=== PATIENT | female | born 1985 | race Caucasian/White ===

== ENCOUNTER → 2018-12-11 | Outpatient (CLI) | payer BC, SELFPAY ==
[2018-12-11 15:28] VITALS: BMI 23.9
[2018-12-14 14:31] LABS: HPV APTIMA, High Risk Negative (Negative)
== END | disposition home or self-care (01) ==
PROVIDERS: Family Provider Family Medicine; PCP Family Medicine; Referring Provider Nurse Practitioner Women's Health; Visit Provider Nurse Practitioner Women's Health
DX: Z12.4 Encounter for screening for malignant neoplasm of cervix (principal)
CPT/HCPCS: 87624; 88175; G0145

== ENCOUNTER → 2019-07-09 | Outpatient (CLI) | payer BC, SELFPAY ==
[2019-07-09 11:27] VITALS: BMI 23.9
[2019-07-09 12:11] LABS: Absolute Lymphocyte Count 2.28 X10^3/uL (0.83-4.51); Absolute Neutrophil Count 8.4 X10^3/uL (2.0-7.7); Basophil# 0.04 X10^3/uL; Basophil% 0.3 % (0-1); Eosinophil# 0.06 X10^3/uL; Eosinophils% 0.5 % (0-5); Hematocrit 39.7 % (37-47); Hemoglobin 13.4 g/dL (12.0-15.0); Lymphocyte # 2.28 X10^3/ul (4.0); Mean Corp Hgb Conc 33.8 g/dL (32-36); Mean Corpuscular Hgb 30.2 pg (27.0-32.0); Mean Corpuscular Volume 89.4 fL (81-99); Mean Platelet Vol. 9.9 fl (6.2-12.0); Monocyte# 1.14 X10^3/uL; Monocyte% 9.5 % (0-10); NRBC Flagged by Analyzer 0 % (0-5); Neutrophil # 8.43 X10^3/uL (2.7-7.7); Neutrophil % 70.4 % (47-70); Platelet Count 249 K/mm3 (150-450); RBC Distribution Width CV 13.1 % (11.6-14.6); RBC Distribution Width SD 42.6 fl (35.1-43.9); Red Blood Count 4.44 M/mm3 (4.2-5.4)
[2019-07-09 13:23] LABS: HIV - WCH Non-Reactive (Nonreactive); Hepatitis B Surface Antigen Non-Reactive (Nonreactive); Hepatitis C Antibody Non-Reactive (Nonreactive); Rubella IgG 120.3 IU/mL
[2019-07-09 13:23] LABS: Amphetamine Urine VISTA NEGATIVE (<1000 ng/mL); Barbiturate Urine VISTA NEGATIVE (< 200 ng/mL); Benzodiazepine Urine VISTA NEGATIVE (< 200 ng/mL); Cocaine Urine VISTA NEGATIVE (< 300 ng/mL); Ecstacy Urine VISTA NEGATIVE (< 500 ng/mL); Methadone Urine VISTA NEGATIVE (< 300 ng/mL); PCP Urine VISTA NEGATIVE (< 25 ng/mL); THC Urine VISTA NEGATIVE (< 50 ng/mL); Vista UDS pH Range 6
[2019-07-09 16:23] LABS: Chlamydia Trachomatis by PCR Negative (Negative); Neisserai gonorrhoeae by PCR Negative (Negative); Probe Check PASS; Sample Adequacy Control PASS; Specimen Processing Control PASS
[2019-07-12 04:37] LABS: Rapid Plasmin Reagin (RPR) NONREACTIVE (NONREACTIVE)
== END | disposition home or self-care (01) ==
LOC: PAVLAB 11:53
PROVIDERS: PCP Family Medicine; Referring Provider Obstetrics & Gynecology; Visit Provider Obstetrics & Gynecology
DX: Z34.80 Encounter for supervision of other normal pregnancy, unspecified trimester (principal)
CPT/HCPCS: 36415; 80307; 85025; 86592; 86703; 86762; 86803; 86850; 86900; 86901; 87086; 87340; 87491; 87591

== ENCOUNTER → 2019-11-21 14:29 | Outpatient (CLI) | payer BC, SELFPAY ==
[2019-11-04 10:50] VITALS: BMI 23.9
[2019-11-21 15:21] LABS: Absolute Lymphocyte Count 2.52 X10^3/uL (0.83-4.51); Basophil# 0.03 X10^3/uL; Basophil% 0.2 % (0-1); Eosinophil# 0.09 X10^3/uL; Eosinophils% 0.7 % (0-5); Hematocrit 34.9 % (37-47); Hemoglobin 11.8 g/dL (12.0-15.0); Lymphocyte # 2.52 X10^3/ul (4.0); Lymphocyte % 18.8 % (19-41); Mean Corp Hgb Conc 33.8 g/dL (32-36); Mean Corpuscular Hgb 31.6 pg (27.0-32.0); Mean Corpuscular Volume 93.3 fL (81-99); Mean Platelet Vol. 10.3 fl (6.2-12.0); Monocyte# 1.59 X10^3/uL; Monocyte% 11.9 % (0-10); NRBC Flagged by Analyzer 0 % (0-5); Neutrophil # 9.01 X10^3/uL (2.7-7.7); Neutrophil % 67.4 % (47-70); POSITIVE DIFFERENTIAL YES; Platelet Count 214 K/mm3 (150-450); RBC Distribution Width CV 13.5 % (11.6-14.6); RBC Distribution Width SD 46.1 fl (35.1-43.9); Red Blood Count 3.74 M/mm3 (4.2-5.4); White Blood Count 13.4 K/mm3 (4.4-11.0)
[2019-11-21 15:29] LABS: Differential Indicated SCAN CRITERIA MET
[2019-11-21 15:45] LABS: Glucose Challenge Gest 1H 50g 90 mg/dL (70-140)
[2019-11-21 15:58] LABS: Platelet Estimate ADEQUATE (ADEQ); Red Cell Morphology NORM C+C NORMAL (NORM C&C)
[2019-11-22 12:14] LABS: Pathologist Review Reviewed
== END ==
PROVIDERS: Nurse Practitioner Women's Health; PCP Family Medicine; Referring Provider Obstetrics & Gynecology; Visit Provider Obstetrics & Gynecology
DX: Z34.80 Encounter for supervision of other normal pregnancy, unspecified trimester (principal)
CPT/HCPCS: 36415; 82950; 85025

== ENCOUNTER 2019-12-06 02:50 | Outpatient (CLI) | payer BC, SELFPAY ==
[2019-12-02 13:14] VITALS: BMI 23.9
[2019-12-06 02:58] VITALS: BP 133/70; PULSE 105; PULSE 98; TEMP 36.6; O2SAT 97; O2SAT 98
[2019-12-06 03:03] VITALS: BP 133/70; PULSE 93
[2019-12-06 03:18] VITALS: BMI 29.8
--- NOTE | 2019-12-06 07:00 | OB.TRI.PN ---
Progress Notes Date of Service: 12/06/19 Progress Note: Patient presents for triage evaluation secondary to contractions threatened labor FHT: 140 Moderate variability reactive no decelerations category I tracing [place]: Irregular contractions Assessment and plan: Threatened labor no cervical change reactive NST, reassuring maternal and status patient discharged to home to follow-up as scheduled. See problem list details for additional plan information. - Problem List (1) Threatened labor Status: Acute Comment: Seen in triage 12/05 no cervical change follow-up labor precautions Multi Select Codes - Urinary/Genital Urinary/Genital CPT Codes: 28689-25 non-stress test Interp
== END 2019-12-06 05:15 | disposition home or self-care (01) ==
LOC: WPOUT 02:54 → WP 02:57
PROVIDERS: PCP Family Medicine; Referring Provider Obstetrics & Gynecology; Visit Provider Obstetrics & Gynecology
DX: O60.00 Preterm labor without delivery, unspecified trimester (principal); Z3A.00 Weeks of gestation of pregnancy not specified
CPT/HCPCS: 59025; 59050; 99218; G0378

== ENCOUNTER 2019-12-30 16:07 | Emergency (ER) | payer BC, SELFPAY ==
[2019-12-30 11:02] VITALS: BMI 29.8
[2019-12-30 16:08] VITALS: BP 137/74; PULSE 79; PULSE 89; RESP 15; RESP 17; TEMP 36.4; O2SAT 98; BMI 30.7
--- NOTE | 2019-12-30 16:23 | EKG12_ITS ---
Test Reason : CP Blood Pressure : / mmHG Vent. Rate : 085 BPM Atrial Rate : 085 BPM P-R Int : 126 ms QRS Dur : 080 ms QT Int : 378 ms P-R-T Axes : 044 060 019 degrees QTc Int : 449 ms Normal sinus rhythm Normal ECG Confirmed by AMITA HICKMAN, BRIANA ([id number]), video editor LUIS ANGEL BREWER ([id number]) on 01/01/2020 11:08:38 AM Referred By: Confirmed By:BRIANA LEVI MD
--- NOTE | 2019-12-30 16:23 | ED.DCSUM_ITS ---
History of Present Illness Chief Complaint: Chest Other Informant: Patient, Family Onset: Weeks - 1 week Context: Gradual Onset Timing: Waxes and wanes Current Severity: Mild Maximum Severity: Moderate Narrative: Patient presents secondary to chest pressure and shortness of breath. She is currently 34 weeks . She reports for the past week having a constant he aviness on her upper chest that gets worse with exertion. She does not have palpitations. She does report becoming easily winded with any exertion. She states this is her third and she did not have the symptoms with her prior pregnancies. She also complains of having a headache for the past 3 days. She states that her sister has a history of a blood clot in her leg secondary to control pills but no other known family history of clotting disorder. - Past Medical History (1) Status: Acute Comment: declines carrier, genetic and NTD- anatomy/echo done 10/10/2019, nl echo 11/11/19 Past Medical History - Allergies and Home Meds Allergies/Adverse Reactions: Allergies No Known Allergies Allergy (Verified 12/30/19 16:08) Primary Care Physician: Phillip Barboza MD [Primary Care Provider] - Prior records reviewed: Yes Lives: With Family Smoking Status: Former smoker Review of Systems General: Denies: Chills, Fever Eyes: Denies: Visual changes - bilaterally ENT: Denies: Bilateral ear pain Cardiovascular: Reports: Chest pain Respiratory: Reports: Dyspnea. Denies: Cough Gastrointestinal: Denies: Abdominal pain, Vomiting, Diarrhea Musculoskeletal: Denies: Extremity Pain Skin: Denies: Rash Neurological: Denies: Headache Hematologic: Denies: Easy bruising, Easy bleeding Allergy: Denies: Uticaria Physical Exam Vital Signs/Narrative: Vital Signs Temp Pulse Resp BP Pulse Ox 12/30/19 16:08 97.5 F L 89 17 137/74 H 98 Inital Vital Signs reviewed: Yes General: Well nourished, Well developed Head: Normocephalic ENT: Moist mucous membranes Neck: Supple Cardiovascular: Regular rate, Regular rhythm Respiratory: No distress, CTA bilaterally Abdomen: Soft - Gravid, Nontender Extremities: - - No significant lower extremity edema noted. Skin: Normal color Neurological: Alert, Oriented x3 Psychological: Normal affect Diagnostic/Tx/Re-eval Impressions Chest X-Ray 12/30/19 17:25 IMPRESSION: Normal x-ray examination of the chest. Electronically Signed: Rajiv Salcedo DO at 17:37 EDT Tel [phone], Service support , Chest CTA 12/30/19 17:35 IMPRESSION: Technically limited CTA chest examination, without a demonstrated pulmonary embolism or arterial dissection. Electronically Signed: Rajiv Salcedo DO at 18:58 EDT Tel [phone], Service support , 12/30/19 17:25 Chest 1 View (Portable) [RAD] Stat 12/30/19 17:35 CTA Chest W/WO Contrast [CT] Stat Laboratory Results 12/30/19 12/30/19 12/30/19 14:55 14:55 14:55 WBC 11.8 H RBC 3.82 L Hgb 12.0 Hct 34.9 L MCV 91.4 MCH 31.4 MCHC 34.4 RDW Std Deviation 44.6 H RDW Coeff of Delio 13.4 Plt Count 188 MPV 10.2 Immature Gran % (Auto) 0.800 Neut % (Auto) 70.8 H Lymph % (Auto) 18.2 L Towns % (Auto) 9.4 Eos % (Auto) 0.5 Baso % (Auto) 0.3 Absolute Neuts (auto) 8.4 H Absolute Lymphs (auto) 2.15 Nucleated RBC % 0 D-Dimer Quant (PE/DVT) 0.89 H* Sodium 140 Potassium 3.0 L Chloride 111 H Carbon Dioxide 22.0 Anion Gap 7 BUN 4 L Creatinine 0.50 L Estim Creat Clear Calc 151.22 Est GFR (MDRD) Af Amer 184 Est GFR (MDRD) Non-Af 152 BUN/Creatinine Ratio 8.0 L Glucose 93 Calcium 8.8 Troponin I < 0.015 - EKG Initial EKG Interpretation: Sinus Rhythm - Sinus at 85 with no acute ischemia. - Medical Decision Making Patient was observed on monitor technician here with no acute ischemia. D-dimer is slightly elevated but CTA does not reveal evidence of large central embolism. Patient is reassured these findings. I did speak with her ACADEMIC DEPARTMENT CHAIR, Dr. Soria. She is to follow-up with her next appointment on the second as scheduled and call prior if there are any problems. Patient will be given a single dose of potassium here as her potassium was slightly low at 3.0. ED Disposition - Plan for ED Patient: Disposition: Home or Assisted Living Diagnosis: Chest pain Instructions: ED Chest Pain NonCardiac Referrals: Abbi Soria MD [STAFF PHYSICIAN] - Keep Cj appointment
--- NOTE | 2019-12-30 16:25 | ED.RN ---
no old ekgs on file
[2019-12-30 17:00] VITALS: O2SAT 96
[2019-12-30 17:11] LABS: Absolute Lymphocyte Count 2.15 X10^3/uL (0.83-4.51); Absolute Neutrophil Count 8.4 X10^3/uL (2.0-7.7); Basophil# 0.03 X10^3/uL; Basophil% 0.3 % (0-1); Eosinophil# 0.06 X10^3/uL; Eosinophils% 0.5 % (0-5); Hematocrit 34.9 % (37-47); Lymphocyte # 2.15 X10^3/ul (4.0); Lymphocyte % 18.2 % (19-41); Mean Corp Hgb Conc 34.4 g/dL (32-36); Mean Corpuscular Hgb 31.4 pg (27.0-32.0); Mean Corpuscular Volume 91.4 fL (81-99); Mean Platelet Vol. 10.2 fl (6.2-12.0); Monocyte# 1.11 X10^3/uL; Monocyte% 9.4 % (0-10); NRBC Flagged by Analyzer 0 % (0-5); Neutrophil # 8.39 X10^3/uL (2.7-7.7); Neutrophil % 70.8 % (47-70); Platelet Count 188 K/mm3 (150-450); RBC Distribution Width CV 13.4 % (11.6-14.6); RBC Distribution Width SD 44.6 fl (35.1-43.9); Red Blood Count 3.82 M/mm3 (4.2-5.4); White Blood Count 11.8 K/mm3 (4.4-11.0)
[2019-12-30 17:25] LABS: D-Dimer Quantitative (DVT/PE) 0.89 FEU/ug/m (0.27-0.49)
--- NOTE | 2019-12-30 17:25 | RAD_ITS ---
STUDY: X-RAY CHEST REASON FOR EXAM: Female, 34 years old. CHEST PRESSURE AND SOB FOR THE PAST WEEK. PT REPORTS BEING 34 WEEKS . TECHNIQUE: Frontal view COMPARISON: None. FINDINGS: The lungs are clear and expanded. There is no demonstrated pleural abnormality. Normal size heart. Normal mediastinum and emil. Normal visualized pulmonary arteries. Normal visualized aortic arch and descending thoracic aorta. Normal visualized thoracic spine. Normal visualized ribs, clavicles, and shoulders. There is no demonstrated abnormality of the visualized soft tissue structures of the upper abdomen. RAD/Chest 1 View (Portable) IMPRESSION: Normal x-ray examination of the chest. Electronically Signed: Rajiv Salcedo DO at 17:37 EDT Tel [phone], Service support ,
[2019-12-30 17:26] LABS: Anion Gap 7 (5-15); BUN 4 mg/dL (7-18); Calcium,Total 8.8 mg/dL (8.5-10.1); Chloride 111 mmol/L (98-107); EST Glomerular Filtration Rate 152 mL/min (>60); Est Glom Filt Rate - Afr Amer 184 mL/min (>60); Estimated Creatinine Clearance 151.22 ml/min; Glucose 93 mg/dL (74-106); Sodium Level 140 mmol/L (136-145)
--- NOTE | 2019-12-30 17:35 | CT_ITS ---
STUDY: CTA CHEST REASON FOR EXAM: Female, 34 years old. CP, SOB, POSITIVE D-DIMER, PT IS 34 WEEKS RADIATION DOSAGE (If Supplied By Facility): CTDIvol = ( 10.50 ) mGy, DLP = ( 332.97 ) mGycm TECHNIQUE: The examination was performed with the intravenous administration of IV 100mL Isovue-370. Post-processing of the angiographic images was performed, with multiplanar reformation and 3D reconstruction. Individualized dose optimization techniques were used for this CT. COMPARISON: None. FINDINGS: Suboptimal enhancement of the main pulmonary artery and right and left pulmonary arteries. Suboptimal enhancement of the bilateral peripheral pulmonary arteries. There is no demonstrated large central pulmonary embolism. Normal thoracic aorta and visualized great vessels. There is no demonstrated aortic dissection. Normal heart and pericardium. Normal mediastinum. Normal hilar regions. Normal visualized trachea and bronchi. The lungs are well expanded. Normal pulmonary parenchyma. Normal pleura. Normal chest wall structures. Normal osseous structures. Normal visualized upper abdomen. CT/CTA Chest W/WO Contrast IMPRESSION: Technically limited CTA chest examination, without a demonstrated pulmonary embolism or arterial dissection. Electronically Signed: Rajiv Salcedo DO at 18:58 EDT Tel [phone], Service support ,
[2019-12-30 19:14] VITALS: BP 118/60; PULSE 85; RESP 18; O2SAT 97
[2019-12-30 19:35] VITALS: BP 128/74; PULSE 81; RESP 16; O2SAT 98
--- NOTE | 2019-12-30 19:36 | ED.RN ---
THIS NURSE REVIEWED D/C INSTRUCTIONS WITH PT AND VISITOR. BOTH VERBALIZED UNDERSTANDING OF INSTRUCTIONS. IV D/C. IV CATHETER INTACT. PT TOLERATED WELL. PT DENIES FURTHER NEEDS OR QUESTIONS AT THIS TIME. PT AMBULATES FROM ROOM ON OWN WITHOUT ASSISTANCE FROMAsael QUIÑONES
== END 2019-12-30 19:37 | disposition home or self-care (01) ==
PROVIDERS: Emergency Provider Emergency Medicine; PCP Family Medicine
DX: O26.893 Other specified pregnancy related conditions, third trimester (principal); R07.89 Other chest pain; Z3A.34 34 weeks gestation of pregnancy; Z87.891 Personal history of nicotine dependence
CPT/HCPCS: 71045; 71275; 80048; 84484; 85025; 85379; 93005; 99285; Q9967; A4216

== ENCOUNTER → 2020-01-17 | Outpatient (CLI) | payer BC, SELFPAY ==
[2020-01-17 12:37] VITALS: BMI 30.7
== END | disposition home or self-care (01) ==
LOC: LABSPEC 13:42
PROVIDERS: PCP Family Medicine; Referring Provider Obstetrics & Gynecology; Visit Provider Obstetrics & Gynecology
DX: Z34.80 Encounter for supervision of other normal pregnancy, unspecified trimester (principal)
CPT/HCPCS: 87081

== ENCOUNTER 2020-02-08 20:10 | Inpatient (IN) | payer BC, SELFPAY ==
[2020-02-06 11:44] VITALS: BMI 31.8
[2020-02-08] VITALS (8 sets, daily range): BP systolic 109–122; BP diastolic 56–68; PULSE 68–84; TEMP 36.2; O2SAT 97–98; BMI 31.9
[2020-02-08] MEDS: Lactated Ringers 1,000 ML 50 ML IV (20:30)
[2020-02-08 20:51] LABS: Absolute Neutrophil Count 6.8 X10^3/uL (2.0-7.7); Basophil# 0.02 X10^3/uL; Basophil% 0.2 % (0-1); Eosinophil# 0.09 X10^3/uL; Eosinophils% 0.8 % (0-5); Hematocrit 39.6 % (37-47); Hemoglobin 13.4 g/dL (12.0-15.0); Lymphocyte % 23.9 % (19-41); Mean Corp Hgb Conc 33.8 g/dL (32-36); Mean Corpuscular Hgb 31.6 pg (27.0-32.0); Mean Corpuscular Volume 93.4 fL (81-99); Mean Platelet Vol. 10.5 fl (6.2-12.0); Monocyte# 1.29 X10^3/uL; Monocyte% 11.8 % (0-10); NRBC Flagged by Analyzer 0 % (0-5); Neutrophil # 6.79 X10^3/uL (2.7-7.7); Neutrophil % 62.4 % (47-70); Platelet Count 210 K/mm3 (150-450); RBC Distribution Width CV 13.8 % (11.6-14.6); RBC Distribution Width SD 46.5 fl (35.1-43.9); Red Blood Count 4.24 M/mm3 (4.2-5.4); White Blood Count 10.9 K/mm3 (4.4-11.0)
[2020-02-09] VITALS (54 sets, daily range): BP systolic 85–140; BP diastolic 47–79; PULSE 61–171; RESP 16–18; TEMP 36–37.3; O2SAT 93–100
[2020-02-09] MEDS: Lactated Ringers 500 ML 999 ML IV ×3 (01:15→10:06)
--- NOTE | 2020-02-09 01:21 | HP.PCM_ITS ---
- Problem List (1) 39 weeks gestation of Status: Acute Comment: electronic covid test ordered 02/07/2020sc (2) Influenza vaccination declined Status: Acute (3) Status: Acute Qualifiers: Comment: declines carrier, genetic and NTD- anatomy/echo done 10/10/2019, nl echo 11/11/19 (4) Supervision of other normal Status: Acute Comment: PRR BENITEZ: 02/13/2020 Dat PC: Rossy Saha Spouse: Neftaly History and Physical Date of Admission: 02/08/20 Intake Vital Signs 02/06/20 Height 5 ft 6 in 02/06/20 Weight: 197 lb 02/06/20 BP 128/80 H Intake Visit Reasons: 39WK OB Finance Advisor Required: No Is patient in pain?: No Allergies No Known Allergies Allergy (Verified 02/06/20 11:44) Medications multivitamin no.47-iron fum 27 mg-folate no.1 1 mg-dha 300 mg capsule 1 cap PO DAILY 07/09/19 history Confirmed 02/06/20 metoclopramide HCl 10 mg tablet 10 mg PO TID PRN #90 tab 09/30/19 Rx Confirmed 02/06/20 Last Menstral Period: 05/09/19 Zika: Zika virus screening: Negative : No PFSH PFSH Medical History Abnormal Pap smear of cervix (Acute) Chronic headaches (Chronic) Surgical History S/P appendectomy (Resolved) S/P tonsillectomy (Resolved) Family History Father Hypertension Grandfather Heart disease Social History (Updated 02/06/20 @ 13:[address] Meg Carlson MD) adopted: No household members: family housing: house number of children: 2 current occupational status: employed current occupation: [employer] current occupational exposures/hazards: No pets and animals: Yes history of recent travel: No sexually active: Yes Smoking Status: Former smoker second hand exposure: No alcohol intake: never substance use type: does not use caffeine: Yes what type of physical activity do you participate in: other details: treadmill, elliptical frequency: 1-2 times per week seatbelt use: always do you feel safe at home: Yes additional social history: - Neftaly- Works at [employer] Patient is a PATR[employer] Pregancy History 3 Elective abortions Hx Para 2 Spontaneous abortions Hx # Term Pregnancies Ectopic pregnancies Hx # Pregnancies Multiple births # of living children 2 Past Pregnancies Del. Date Name GA/Weeks Outcome Route Bth Weight Infant Gen Labor Lgth Anes thesia Del Locatn Provider FOB 10/23/11 [place] 40 live - full term vacuum 7 lbs. 11 oz Ma le 13 hours epidural [facility] Dr. Luis Felipe Higginbotham 10/04/16 Rossy 40 live - full term 7 lbs. 12 oz Fema le 8 hours epidural [facility] Dr. Estella Higginbotham Delivery Date: 10/23/11 VAVD- pushed for 3 hours Chayo Quan Delivery Date: 10/04/16 no complications Chayo Quan HPI 39WK OB : Details: SMITA KAUFMAN is a 34 year old who presents for routine OB visit. OB Visit BENITEZ Calculator Estimated Delivery Date Method Current WG Current Estimate 02/13/20 LMP (Certain) 39w 0d Expected Delivery Route/Plan Labor Preferences- CB/BF classes: no labor support person: Neftaly labor intervention preferences: open to all interventions pain management options preferred: epidural cut cord/dad catch: cord : yes PP control planned: discussed possible routes of delivery and associated risks: special requests: denies Specific Issue/Plans flu vaccine: declined tdap vaccine: given rhogam: na LARC form signed: yes movement and labor precautions reviewed. Problem list reviewed and updated with the most current plan of care details and appropriate orders placed. Relevant counseling for the gestational age provided. Continue routine care and follow up unless otherwise noted in visit notes/problem list details Initial Weight: 157 lb Date EGA Weight BP Urine Prot Glucose FHR FuHt Pres Dilation Effaced St Visit Note 08/12/19 13w 4d 162 lb 6 oz (+5 lb 6 oz) 116/70 Negative Negative 150 SM- no vb lof cramping. 09/30/19 20w 4d 170 lb 2 oz (+13 lb 2 oz) 120/88 Negative Negative 150 SM- no vb cramping, GONZALEZ still 11/04/19 25w 4d 181 lb (+24 lb) 100/62 Negative Negative 145 25 SM- getting fu anatomy scan for limited heart views, scheduled, obtain US report. co swelling and achiness more. SM- getting fu anatomy scan for limited heart views, scheduled, obtain US report. co swelling and achiness more. no vb crmaping 11/21/19 28w 0d 187 lb (+30 lb) 116/72 Negative Negative 142 28 MH-No VB, LOF. Good FM. 28 wk labs, tdap, larc 12/02/19 29w 4d 191 lb (+34 lb) 122/80 Negative Negative 140 30 SM- no vb lof good fm n oregular ctx 12/19/19 32w 0d 190 lb (+33 lb) 126/76 Negative Negative 150 32 GP - no VB, LOF, DFM, ctx. Having increased pressure when working. Rec pelvic support band. 12/30/19 33w 4d 193 lb 2 oz (+36 lb 2 oz) Negative Negative 150 34 GP -no LOF, VB, DFM, Ctx. Having persistent headaches and chest pressure, but vitals normal and sats normal. To see PCP tomorrow. 01/17/20 36w 1d 195 lb 2 oz (+38 lb 2 oz) 134/72 Negative Negative 140 36 SM- no vb lof good fm no regular ctx gbs today 01/23/20 37w 0d 196 lb 6 oz (+39 lb 6 oz) 108/70 Negative Negative 140 37 Cephalic 1 40 -3 GP - no LOF, VB, DFM, reg ular ctx. Denies complaints. Cervix remains 1cm and thick. 01/31/20 38w 1d 196 lb (+39 lb) 118/60 Negative Negative 135 38 Cephalic 3 40 -2 SM- no vb lof good fm no regular ctx 02/06/20 39w 0d 197 lb (+40 lb) 128/80 Negative Negative 140 39 Cephalic 3 60 -2 GP - no LOF, VB, DFM, reg contractions. Membranes swept today. ACOG First Trimester First Trimester: Discussed Second Trimester Second Trimester: Signs and Symptoms of Labor, Selecting a care provider, Reproductive Life Planning, Care Planning, Depression/Anxiety and Intimate Partner Violence; discussed Tobacco Cessation Diagnostics Diagnostics Diagnostics Glucose 1 Hr 50 gm 90 mg/dL (70-140) 11/21/19 Hgb 12.0 g/dL (12.0-15.0) 12/30/19 Hct 34.9 % (37-47) L 12/30/19 Details: HIV: Urine Culture: Sequential Screen: NIPT Screen: ROS Const Reports system reviewed and no additional complaints, except as docu Eyes Reports system reviewed and no additional complaints, except as docu ENT Reports system reviewed and no additional complaints, except as docu Card Reports system reviewed and no additional complaints, except as docu Resp Reports system reviewed and no additional complaints, except as docu GI Reports system reviewed and no additional complaints, except as docu Reports system reviewed and no additional complaints, except as docu, Denies abnormal vaginal bleeding, Denies painful urination, Denies nipple discharge, Denies pelvic pain, Denies vaginal discharge, Denies vaginal odor, Denies vagin al itching Musc Reports system reviewed and no additional complaints, except as docu Skin/Breast Reports system reviewed and no additional complaints, except as docu, Denies nipple discharge Neuro Yes system reviewed and no additional complaints, except as docu Psych Reports system reviewed and no additional complaints, except as docu Endo Reports system reviewed and no additional complaints, except as docu Alexei/Lymph Reports system reviewed and no additional complaints, except as docu Exam Const General: cooperative, healthy appearing, comfortable, no acute distress, well developed, well groomed Nutritional Appearance: average body habitus, well nourished Orientation: alert, awake, oriented x3 HENMT Head: normal to inspection, normocephalic, atraumatic Eyes Pupils: PERRL, accommodation normal Resp Effort & Inspection: normal respiratory effort, able to speak in complete sentences, symmetric chest movement Cardio Rate: regular rate GI Palpation: soft, no guarding, no masses, nontender Skin General: no rashes or lesions noted, elasticity normal, turgor normal Neuro General: alert, awake, oriented x3 Cranial Nerves: CN's II-XI intact bilaterally, sense of smell intact, PERRL, accommodation normal, EOM intact bilaterally Speech: speech normal Gait: normal gait Psych Appearance: grossly normal, well kempt Mental Status: mental status grossly normal Mood: congruent mood Affect: normal affect Speech and Movement: speech and movement normal Attitude: cooperative Thought Process: normal Thought Content: normal Judgment: judgment good Results POC Urinalysis 2 Dip (Clinic) Office Urine Glucose Negative Last Edit by Glory Nugent on 02/06/20 11:50 Office Urine Protein Negative Last Edit by Glory Nugent on 02/06/20 11:50 Assessment & Plan Problems 1. Influenza vaccination declined Z28.21 2. 39 weeks gestation of Z3A.39 declines carrier, genetic and NTD- anatomy/echo done 10/10/2019, nl echo 11/11/19 3. Supervision of other normal Z34.80 PRR BENITEZ: 02/13/2020 Dat PC: Rossy Saha Spouse: Neftaly Patient presents IAL, plan expectant management for , pitocin/AROM PRN if needed. Pain management: plans epidural. GBS negative. Management of any complications: None I have reviewed the [facility] and made any clinically relevant updates. Orders Orders: POC Urinalysis 2 Dip (Clinic) Today Coding Level of Care Code OB Routine Diagnoses Influenza vaccination declined Z28.21 39 weeks gestation of Z3A.39 ??Weeks of gestation: 39 weeks Supervision of other normal Z34.80 UPDATE- I have seen the patient and performed any clinically relevant updates to the history and physical exam. Meg Carlson MD
[2020-02-09] MEDS: fentaNYL-bupivacaine (epidural) 100 ML BAG EPIDURAL ×2 (01:40→06:51)
[2020-02-09] MEDS: Ondansetron 4 MG/2 ML Vial IV (02:21)
[2020-02-09] MEDS: Lactated Ringers 1,000 ML 200 ML IV ×2 (04:14→09:16)
[2020-02-09] MEDS: Oxytocin 30 units/NS 500 ml 30 UNITS/500 ML IV.SOLN IV (06:57)
[2020-02-09] MEDS: Oxytocin 30 units/NS 500 ml 30 UNITS/500 ML IV.SOLN 334 UNITS IV (11:35)
--- NOTE | 2020-02-09 11:48 | OP.PCM_ITS ---
Problem List (1) 39 weeks gestation of Status: Acute Comment: electronic covid test ordered 02/07/2020sc (2) Influenza vaccination declined Status: Acute (3) Status: Acute Qualifiers: Comment: declines carrier, genetic and NTD- anatomy/echo done 10/10/2019, nl echo 11/11/19 (4) Supervision of other normal Status: Acute Comment: PRR BENITEZ: 02/13/2020 Dat PC: Rossy Saha Spouse: Neftaly Vaginal Delivery Maternal Presentation: Active Labor 34-year-old female G3, P2 at 39 weeks gestation admitted for active labor. She required augmentation with amniotomy and Pitocin. She made cervical change to complete dilation and began to push. Method of Induction: Pitocin, Amniotomy Amniotic Membrane Rupture Type: Artificial Amniotic Fluid Description: Clear Final BENITEZ: 02/13/20 Gestational age: 39 Weeks and 3 Days Date of Procedure: 02/09/20 Pre-Operative Diagnosis: Term , active labor Post-Operative Diagnosis: Same Surgery/ Procedure Performed: Spontaneous Vaginal Delivery Type of Anesthesia: Epidural Description of Procedure: Patient began pushing and delivered the head in the MIRACLE presentation. The head was delivered atraumatically and no nuchal cord was noted.. The anterior and posterior shoulders delivered without complication followed by the rest of the infant and the infant was placed on the maternal abdomen. Delayed cord clamping was employed for approximately 60 seconds. Cord was clamped and cut and gentle traction was applied to the cord and the placenta delivered spontaneously immediately following it was noted to be intact with three-vessel cord. The perineum and vagina were inspected and noted to have a second-degree perineal laceration that was repaired in the standard fashion using 3-0 Vicryl repeat suture. EBL was 250 cc. Patient and infant tolerated delivery well. Presentation: Vertex, MIRACLE Placental Delivery Description: Spontaneous Placenta Disposition: [facility] Cord Vessel Description: 3 Vessels Cord Entanglement: None Estimated Blood Loss: 250 Infant A gender: Male Episiotomy Description: None Laceration: Midline, 2nd degree Medications given after delivery: IV Pitocin Complications: None Multi Select Codes - Urinary/Genital Urinary/Genital CPT Codes: 96096 Vaginal Delivery [facility]
[2020-02-09] MEDS: 0.9% Saline Lock 10 ML Syringe IV (14:28)
[2020-02-09] MEDS: Ibuprofen 600 MG Tablet PO (20:50)
[2020-02-09] MEDS: Acetaminophen 500 MG Tablet 1000 MG PO (23:18)
[2020-02-10 03:30] VITALS: BP 117/59; PULSE 78; RESP 16; TEMP 36.4; O2SAT 95
[2020-02-10] MEDS: Ibuprofen 600 MG Tablet PO ×2 (03:42→12:15)
[2020-02-10 08:07] VITALS: BP 110/57; PULSE 68; RESP 16; TEMP 36.3
--- NOTE | 2020-02-10 08:35 | PN.OBGYN_ITS ---
Patient Problems: Active and Suspected Problems (Last Reviewed 02/06/20 @ 11:44 by Glory Nugent) 39 weeks gestation of (Acute) electronic covid test ordered 02/07/2020sc Influenza vaccination declined (Acute) (Acute) declines carrier, genetic and NTD- anatomy/echo done 10/10/2019, nl echo 11/11/19 Supervision of other normal (Acute) PRR BENITEZ: 02/13/2020 Dat PC: Rossy Saha Spouse: Neftaly Subjective: Patient doing well without complaints. Tolerating PO. Ambulating and voiding w ithout difficulty. well. Denies chest pain, shortness of breath, calf pain/swelling, fevers, chills, lightheadedness. - Physical Exam Vitals/I&O's: Vital Signs Temp Pulse Resp BP Pulse Ox 97.4 F L 68 16 110/57 L 95 02/10/20 08:07 02/10/20 08:07 02/10/20 08:07 02/10/20 08:07 02/10/20 03:30 Oxygen Delivery Method Room Air Weight: 198 lb 3.129 oz Body Mass Index (BMI) 31.9 Intake and Output for Last 24 Hours 02/08/20 02/09/20 02/10/20 23:59 23:59 23:59 Intake Total 5114.27 / 5114.27 Output Total 3200 / 3200 Balance 1914.27 / 1914.27 General: Alert, Oriented x3, Cooperative Abdomen: Non-Distended Extremities: - - FF below U Current Medications Acetaminophen (Acetaminophen 500 Mg Tablet) 1,000 mg PO Q8H PRN PRN PRN Reason: Pain Score 1-3 Last Admin: 02/09/20 23:18 Dose: 1,000 mg Documented by: Bisacodyl (Bisacodyl 10 Mg Suppository) 10 mg RECTAL UD PRN PRN Reason: If no BM Dibucaine (Dibucaine 30 Gm Tube) 1 applic TOPICAL TID PRN PRN; Protocol PRN Reason: Discomfort Hydrocortisone (Hydrocortisone 2.5% Crm) 1 applic TOPICAL TID PRN PRN; Protocol PRN Reason: Discomfort Ibuprofen (Ibuprofen 600 Mg Tablet) 600 mg PO Q6H PRN PRN PRN Reason: Pain Score 1-3 Last Admin: 02/10/20 03:42 Dose: 600 mg Documented by: Influenza Virus Vaccine Quadrival (Influenza Vaccine (6mos+)/Pf 0.5 Ml Syringe) 0.5 ml IM .ONCE ONE Stop: 02/10/20 10:01 Last Admin: 02/09/20 22:49 Dose: 0.5 ml Documented by: Methylergonovine Maleate (Methylergonovine 0.2 Mg/Ml Ampul) 0.2 mg IM X1 PRN PRN Reason: Excess bleeding/uterine atony Ondansetron HCl (Ondansetron 4 Mg/2 Ml Vial) 4 mg IV Q4H PRN PRN PRN Reason: Nausea Oxycodone HCl (Oxycodone 5 Mg Tablet) 5 - 10 mg PO Q4H PRN PRN PRN Reason: Pain Score 4-10 Senna/Docusate Sodium (Senna/Docusate Sodium 1 Tablet) 1 - 2 tablet PO DAILY PRN PRN PRN Reason: Constipation Simethicone (Simethicone 80 Mg Tablet) 80 mg PO PCHS PRN PRN Reason: Indigestion/Stomach pain Sodium Chloride (0.9% Saline Lock 10 Ml Syringe) 5 - 15 ml IV UD PRN PRN Reason: SALINE FLUSH Last Admin: 02/09/20 14:28 Dose: 10 ml Documented by: Medical Necessity - Tobacco Use Smoking Status: Former smoker Assessment/Plan All Active Problems (Last Reviewed 02/06/20 @ 11:44 by Glory Nugent) 39 weeks gestation of (Acute) Influenza vaccination declined (Acute) (Acute) Supervision of other normal (Acute) Threatened labor (Resolved) s/p PPD # 2 1. routine post delivery care 2. breast feeding- support given 3. rh positive 4. rubella immune 5. home today
--- NOTE | 2020-02-10 08:37 | DCINST_ITS ---
Additional Instructions: If you experience any of the following, contact your healthcare provider. * Bleeding that soaks a pad every hour for 2 hours * Fever 100.4 or higher * Unrelieved incision or abdominal pain * Swelling, redness, discharge or bleeding from your incision or episiotomy site * Your incision begins to separate * Problems urinating (including inability to urinate or burning while urinating). * Visual changes * Severe headache * Flu-like symptoms * Pain or redness in one of both of your breasts * Pain, warmth, tenderness or swelling in your legs, especially the calf area * Frequent nausea and vomiting * Symptoms of depression or anxiety If you experience any of the following, call 911 or go to the nearest Emergency Room. * Chest pain * Problems breathing * Seizure activity * Partial or complete paralysis of a body part, slurred speech, weakness or drooping of the face, or a sudden inability to walk or hold your balance Allergies/Adverse Reactions: Allergies No Known Allergies Allergy (Verified 02/06/20 11:44) Medications to take at Discharge multivitamin no.47-iron fum 27 mg-folate no.1 1 mg-dha 300 mg capsule 1 cap PO DAILY 07/09/19 metoclopramide HCl 10 mg tablet 10 mg PO TID PRN #90 tab 09/30/19 Primary Care Physician: Phillip Barboza MD [Primary Care Provider] - Test Results: Test results from this visit will be discussed in further detail at your follow- up appointment, if applicable.
--- NOTE | 2020-02-10 08:37 | PCM.DCVAG ---
Additional Instructions: If you experience any of the following, contact your healthcare provider. Bleeding that soaks a pad every hour for 2 hours Fever 100.4 or higher Unrelieved incision or abdominal pain Swelling, redness, discharge or bleeding from your incision or episiotomy site Your incision begins to separate Problems urinating (including inability to urinate or burning while urinating). Visual changes Severe headache Flu-like symptoms Pain or redness in one of both of your breasts Pain, warmth, tenderness or swelling in your legs, especially the calf area Frequent nausea and vomiting Symptoms of depression or anxiety If you experience any of the following, call 911 or go to the nearest Emergency Room. Chest pain Problems breathing Seizure activity Partial or complete paralysis of a body part, slurred speech, weakness or drooping of the face, or a sudden inability to walk or hold your balance Allergies/Adverse Reactions: Allergies No Known Allergies Allergy (Verified 02/06/20 11:44) Medications to take at Discharge multivitamin no.47-iron fum 27 mg-folate no.1 1 mg-dha 300 mg capsule 1 cap PO DAILY 07/09/19 metoclopramide HCl 10 mg tablet 10 mg PO TID PRN #90 tab 09/30/19 Primary Care Physician: Phillip Barboza MD [Primary Care Provider] - Test Results: Test results from this visit will be discussed in further detail at your follow-up appointment, if applicable.
[2020-02-10 12:10] VITALS: BP 130/81; PULSE 78; RESP 16; TEMP 36.3
== END 2020-02-10 14:45 | disposition home or self-care (01) | DRG 807 ==
LOC: WPOUT 20:18 → WP 20:18
PROVIDERS: Admitting Provider Obstetrics & Gynecology; PCP Family Medicine; Referring Provider Obstetrics & Gynecology; Visit Provider Obstetrics & Gynecology
DX: O70.1 Second degree perineal laceration during delivery (principal); Z37.0 Single live birth; Z3A.39 39 weeks gestation of pregnancy
CPT/HCPCS: 59025; 59050; 85025; 86850; 86900; 86901; 99218; J7120; 90686; A4216; G0378; J2405

== ENCOUNTER → 2021-01-21 | Outpatient (CLI) | payer BC, SELFPAY ==
[2021-01-22 22:07] LABS: Chlamydia By Nucleic Acid AMP Negative (Negative)
[2021-01-22 23:22] LABS: Gonococcus By Nucleic Acid AMP Negative (Negative)
== END | disposition home or self-care (01) ==
PROVIDERS: PCP Family Medicine; Referring Provider Nurse Practitioner Women's Health; Visit Provider Nurse Practitioner Women's Health
DX: N76.0 Acute vaginitis (principal); Z11.3 Encounter for screening for infections with a predominantly sexual mode of transmission
CPT/HCPCS: 87070; 87205; 87491; 87591

== ENCOUNTER → 2021-01-22 12:34 | Outpatient (CLI) | payer BC, SELFPAY ==
--- NOTE | 2021-01-22 12:34 | US_ITS ---
STUDY: ULTRASOUND OF THE FEMALE PELVIS - COMPLETE REASON FOR EXAM: Female, 35 years old. pain, check IUD LMP: TECHNIQUE: Transabdominal and transvaginal TECHNICAL QUALITY: Adequate. COMPARISON: 03/27/2012 FINDINGS: The uterus is anteverted and is in a midline position. The uterus measures 7 x 5.5 x 3.8 cm. Normal uterine cervix. The endometrium measures 2.7 mm in thickness, and is hyperechoic. There is no demonstrated endometrial mass. There is no demonstrated myometrial mass. IUD is noted but appears slightly low-lying and malrotated The right ovary is visualized. The right ovary measures 4.1 x 1.8 x 2.8 cm. There is no right ovarian cyst or ovarian mass. There is no visualized right adnexal mass or complex lesion. There is normal arterial and normal venous vascularity. The left ovary is visualized. The left ovary measures 4.3 x 2.8 x 1.6 cm. There is no left ovarian cyst or ovarian mass. There is no visualized left adnexal mass or complex lesion. There is normal arterial and normal venous vascularity. There is mild fluid in the cul-de-sac. The pre void volume of the bladder was 1300 ml. ml. US/Transvaginal Non- IMPRESSION: IUD noted within the endometrial canal which is low-lying and slightly malrotated.. Small amount of free fluid in the cul-de-sac which may be consistent with recent ovulation Electronically Signed: Ricco Ward MD at 16:53 EDT , Service support ,
--- NOTE | 2021-01-22 12:34 | US_ITS ---
STUDY: ULTRASOUND OF THE FEMALE PELVIS - COMPLETE REASON FOR EXAM: Female, 35 years old. pain, check IUD LMP: TECHNIQUE: Transabdominal and transvaginal TECHNICAL QUALITY: Adequate. COMPARISON: 03/27/2012 FINDINGS: The uterus is anteverted and is in a midline position. The uterus measures 7 x 5.5 x 3.8 cm. Normal uterine cervix. The endometrium measures 2.7 mm in thickness, and is hyperechoic. There is no demonstrated endometrial mass. There is no demonstrated myometrial mass. IUD is noted but appears slightly low-lying and malrotated The right ovary is visualized. The right ovary measures 4.1 x 1.8 x 2.8 cm. There is no right ovarian cyst or ovarian mass. There is no visualized right adnexal mass or complex lesion. There is normal arterial and normal venous vascularity. The left ovary is visualized. The left ovary measures 4.3 x 2.8 x 1.6 cm. There is no left ovarian cyst or ovarian mass. There is no visualized left adnexal mass or complex lesion. There is normal arterial and normal venous vascularity. There is mild fluid in the cul-de-sac. The pre void volume of the bladder was 1300 ml. ml. US/Pelvic (Non ) IMPRESSION: IUD noted within the endometrial canal which is low-lying and slightly malrotated.. Small amount of free fluid in the cul-de-sac which may be consistent with recent ovulation Electronically Signed: Ricco Ward MD at 16:53 EDT , Service support ,
== END ==
PROVIDERS: PCP Family Medicine; Referring Provider Nurse Practitioner Women's Health; Visit Provider Nurse Practitioner Women's Health
DX: R10.2 Pelvic and perineal pain (principal); Z30.431 Encounter for routine checking of intrauterine contraceptive device
CPT/HCPCS: 76830; 76856

== ENCOUNTER 2021-02-25 20:26 | Emergency (ER) | payer BC, SELFPAY ==
[2021-02-25 20:26] VITALS: BP 124/73; PULSE 69; RESP 16; TEMP 36.4; O2SAT 100; BMI 27.2
--- NOTE | 2021-02-25 20:39 | EX.ED.VIS.HA ---
HPI History of Present Illness Chief Complaint: Headache Informant: patient Onset/Context/Timing Onset: Days Context: Gradual Timing: Continuous Current Severity: Moderate Maximum Severity: Moderate Associated Symptoms/Injury Associated Symptoms: Positive for Nausea; Negative for Fever, Vomiting and Sore Throat Narrative Narrative: 35-year-old female history of chronic headaches. Had a headache that gradually came on Monday progressively worsened. It is in the back of her head. She denies any fall injury or traumas. No fever. No sinus congestion. She is nauseated but no vomiting. There is no family history of aneurysms or intracranial bleeds. She has had similar headaches like this before. Prior similar symptoms: Yes Recent Illness/Hospitalization: No PFSH PFSH Medical History Abnormal Pap smear of cervix Chronic headaches Home Medications NK 01/26/21 [History Last Taken Unknown] Allergy/AdvReac Type Severity Reaction Status Date / Time No Known Allergies Allergy Verified 02/25/21 20:27 Family History Father Hypertension Grandfather Heart disease Surgical History S/P appendectomy S/P tonsillectomy Social History adopted: No household members: family housing: house number of children: 2 current occupational status: employed current occupation: [employer] current occupational exposures/hazards: No pets and animals: Yes history of recent travel: No sexually active: Yes Smoking Status: Current some day smoker tobacco type: cigarettes second hand exposure: No alcohol intake: never substance use type: does not use caffeine: Yes what type of physical activity do you participate in: other details: treadmill, elliptical frequency: 1-2 times per week seatbelt use: always do you feel safe at home: Yes additional social history: - [place]- Works at [email or web address] Patient is a [employer] ROS ROS ED ROS Narrative Headache with nausea. Review of Systems ROS Unobtainable: Denies due to encephalopathy Constitutional Constitutional ED: Denies chills or fever(s) Eyes Eyes: Denies blurry vision, change in vision or diplopia ENT ENT ED: Denies ear pain, rhinorrhea or sore throat Cardiovascular Cardiovascular: Denies chest pain Respiratory/Chest Respiratory/Chest: Denies cough or dyspnea Gastrointestinal Gastrointestinal: Reports nausea; Denies abdominal pain, constipation, diarrhea or vomiting Genitourinary Genitourinary ED: Denies dysuria or hematuria Musculoskeletal Musculoskeletal: Denies myalgias Integumentary Denies rash Neurologic Neurologic: Reports headache(s); Denies paresthesias or weakness Psychiatric Psychiatric: Denies depression Endocrine Endocrinology: Denies polyuria Hematologic/Lymphatic Hematologic/Lymphatic: Denies easy bruising Allergic/Immunologic Allergic/Immunologic ED: Denies urticaria EXAM Physical Exam Narrative Exam Narrative: 35-year female no acute distress sitting upright in a darkened room. Significant other at bedside. H EENT exam unremarkable. Pupils are reactive light his motions are intact. No facial droop. No trauma. Neck nontender no lymphadenopathy. No meningismus. Able to touch chin to chest. Lungs clear to auscultation bilaterally. Heart regular rhythm no murmur. Abdomen soft nontender. Extremities moves all 4. Calves nontender no edema. Neurologically patient is awake alert and no focal motor deficits. Fingertip to nose [id number] within normal limits. NIH is 0. Const Vital Signs: 02/25/21 20:26 Temperature 97.6 F L Temperature Source Temporal Pulse Rate 69 Respiratory Rate 16 Blood Pressure 124/73 H Blood Pressure Mean 90 Pulse Ox 100 Oxygen Delivery Method Room Air Positive well nourished and well developed; Negative for obese, cachectic, contractures or unkempt General Appearance ED: well developed and NAD; Negative for unkempt, cachectic, contractures, cyanotic or diaphoretic Nutritional Appearance: Negative for cachectic or obese HEENT Reports normocephalic and moist mucous membranes atraumatic; Negative for trauma or tenderness Eyes PERRL and EOMs intact bilaterally Neck no lymphadenopathy, supple, no meningeal signs and no JVD General: Negative for tenderness Resp normal respiratory effort and clear to auscultation bilaterally Auscultation: Negative for rales, rhonchi or wheezes Cardio regular rate, regular rhythm, S1 normal heart sound, S2 normal heart sound and no murmurs GI non-tender and non-distended Auscultation: normoactive bowel sounds Palpation: soft; Negative for firm, tender, guarding or rigid Back/Spine no CVA tenderness General Back: Negative for CVA tenderness or tenderness Cervical Spine: Negative for cervical spine tenderness Thoracic Spine / Upper Back: Negative for thoracic spinal tenderness Lumbar Spine / Lower Back: Negative for lumbar spinal tenderness Extremity normal to inspection and full ROM Neuro oriented x3, CN's II-XII intact bilaterally and no sensory deficits noted Sensorium / Orientation: awake, alert, oriented to person, oriented to place and oriented to time; Negative for orientation impaired, lethargic or stuporous Motor Exam: strength 5/5 throughout Psych mental status grossly normal Appearance: Negative for unkempt Mood & Affect: Negative for depressed or tearful Skin Lesions: no lesions Rashes: no rashes MDM MDM MDM Narrative Medical decision making narrative: 35-year-old female with chronic headaches with a headache it has been gone now to 3 days it was gradual in onset with a normal neurologic exam. She will be treated with IV fluids, Toradol, Benadryl and Compazine and reassess. I do not think she needs imaging. Repeat exam patient is doing well at 10:06 PM. Neurologic exam is unchanged and normal. She states she feels much better after IV medication and wants to be discharged home. Discharge Plan Triage Chief Complaint: Headache ED Provider: Javier Marroquin Dx/Rx/DC Orders Clinical Impression: Migraine Instructions: ED, Migraine (Classical) Prescriptions: No Action NK RF: 0 Primary Care Provider: Phillip Barboza Referrals: Phillip Barboza MD [Primary Care Provider] - 1-2 Days if not improving Activity Restrictions/Additional Instructions: Plenty of fluids and rest. Tylenol and Motrin for pain. Follow-up if not improving or return if feeling worse. Disposition Disposition: Home, Self Care
[2021-02-25] MEDS: 0.9% Normal Saline 1,000 ML 1000 ML IV (21:03)
[2021-02-25] MEDS: DiphenhydrAMINE 50 MG/ML Syringe 25 MG IV (21:03)
[2021-02-25] MEDS: proCHLORPERazine 10 MG/2 ML Vial IV (21:05)
[2021-02-25] MEDS: Ketorolac 30 MG/ML Syringe IV (21:06)
[2021-02-25 22:13] VITALS: PULSE 64; RESP 16; O2SAT 97
== END 2021-02-25 22:13 | disposition home or self-care (01) ==
LOC: ED 20:48
PROVIDERS: Emergency Provider Emergency Medicine; PCP Family Medicine
DX: G43.909 Migraine, unspecified, not intractable, without status migrainosus (principal); F17.210 Nicotine dependence, cigarettes, uncomplicated
CPT/HCPCS: 96361; 96374; 96375; 99282; J7030

== ENCOUNTER → 2022-08-10 | Outpatient (CLI) | payer BC, SELFPAY ==
[2022-08-19 14:09] LABS: HPV APTIMA, High Risk Negative (Negative)
== END | disposition home or self-care (01) ==
LOC: LABSPEC 16:34
PROVIDERS: PCP Family Medicine; Referring Provider Registered Nurse; Visit Provider Registered Nurse
DX: Z12.4 Encounter for screening for malignant neoplasm of cervix (principal)
CPT/HCPCS: 87624; 88175; G0145